=== PATIENT | female | born 1995 | race Caucasian/White ===

== ENCOUNTER 2017-03-22 13:42 | Emergency (ER) | payer OTHER ==
[~2017-03-22] VITALS: Ht 160 cm; Wt 73.5 kg
[2017-03-22 14:24] VITALS: BP 112/66
--- NOTE | 2017-03-22 15:16 | NUR ---
Patient ambulated to bed 5. RN evaluating patient at bedside.
--- NOTE | 2017-03-22 15:20 | NUR ---
21 PT PRESENTS TO ER W/C/O 01/17 RIGHT SIDED HEADACHE X2 DAYS. PT STATES SHE IS 20 WEEKS , AND HAS BEEN TAKING TYLENOL AT HOME, BUT IT IS NOT WORKING; DENIES N/V/D AT THIS TIME; SKIN IS PINK/WARM/DRY; AAOX4 WITH EVEN AND STEADY GAIT; RR ARE EVEN AND UNLABORED; PT DENIES ANY RECENT FEVERS, SOB, OR COUGH AT THIS TIME; VSS; PATIENT POSITIONED FOR COMFORT; HOB ELEVATED; BEDRAILS UP X2; BED DOWN. ER MD MADE AWARE OF PT STATUS.
[2017-03-22] MEDS ORDERED: ACETAMINOPHEN 325 MG TAB PO ONE (15:30)
[2017-03-22 16:34] VITALS: BP 107/77
--- NOTE | 2017-03-22 16:34 | NUR ---
Patient discharged with v/s stable. Written and verbal after care instructions given and explained. Patient verbalized understanding. Ambulatory with steady gait. All questions addressed prior to discharge. Advised to follow up with PMD.
== END 2017-03-22 16:34 | disposition home or self-care (01) ==
LOC: MED 13:42
DX: O26.892 Other specified pregnancy related conditions, second trimester (principal); R51 Headache; O21.8 Other vomiting complicating pregnancy; Z3A.18 18 weeks gestation of pregnancy
CPT/HCPCS: 81002; 99282

== ENCOUNTER 2018-10-19 19:10 | Observation (INO) | payer OTHER ==
[~2018-10-19] VITALS: Ht 162.6 cm; Wt 87.1 kg
[2018-10-19] MEDS ORDERED: PREN-380 PO (19:55)
[2018-10-19 21:06] VITALS: BP 110/71
== END 2018-10-19 22:10 | disposition home or self-care (01) ==
LOC: MLD 19:10
PROVIDERS: ADMIT Obstetrics & Gynecology; ATTEND Obstetrics & Gynecology
DX: O36.8190 Decreased fetal movements, unspecified trimester, not applicable or unspecified (principal); Z3A.00 Weeks of gestation of pregnancy not specified
CPT/HCPCS: 81000; G0378

== ENCOUNTER 2020-01-22 13:02 | Emergency (ER) | payer OTHER ==
[~2020-01-22] VITALS: Ht 162.6 cm; Wt 81.6 kg
[~2020-01-22 13:02] MED LIST: PREN-380 PO
[2020-01-22 13:40] VITALS: BP 120/72
[2020-01-22 15:00] VITALS: BP 120/72
--- NOTE | 2020-01-22 15:00 | NUR ---
NO NURSING CARE RENDERED-ALL EVAL, TX AND DISCHARGED DONE BY ER ME DR MEADOWS
== END 2020-01-22 15:00 | disposition home or self-care (01) ==
LOC: MED 13:02
DX: S93.602A Unspecified sprain of left foot, initial encounter (principal); Z79.899 Other long term (current) drug therapy; X50.1XXA Overexertion from prolonged static or awkward postures, initial encounter; Y93.01 Activity, walking, marching and hiking; Y92.89 Other specified places as the place of occurrence of the external cause; Y99.8 Other external cause status
CPT/HCPCS: 73630; 99283

== ENCOUNTER 2020-12-14 10:37 | Emergency (ER) | payer OTHER ==
[~2020-12-14] VITALS: Ht 162.6 cm; Wt 81.6 kg
[2020-12-14 10:47] VITALS: BP 113/88
[2020-12-14] MEDS ORDERED: ONDANSETRON 4 MG ODT PO ONE (11:20)
[2020-12-14 11:26] LABS: APPEARANCE,URINE CLOUDY (CLEAR); BILIRUBIN,URINE 1+ (NEGATIVE); BLOOD, URINE 2+ (NEGATIVE); COLOR,URINE YELLOW (YELLOW); LEUKOCYTE ESTERASE ,URINE 2+ (NEGATIVE); NITRITE, URINE NEGATIVE (NEGATIVE); UGLUCOSE NEGATIVE (NEGATIVE)
[2020-12-14 11:38] LABS: RBC,URINE 0-5 /HPF (0-5)
[2020-12-14] MEDS ORDERED: NITR100C7 PO (11:55)
[2020-12-14] MEDS ORDERED: ONDA-24 SL (11:55)
[2020-12-14 12:00] VITALS: BP 113/88
== END 2020-12-14 12:00 | disposition home or self-care (01) ==
LOC: MED 10:37
DX: N39.0 Urinary tract infection, site not specified (principal); R11.0 Nausea; R14.0 Abdominal distension (gaseous); Z79.899 Other long term (current) drug therapy
CPT/HCPCS: 81001; 81025; 87086; 99283; Q0162

== ENCOUNTER 2021-02-28 19:25 | Emergency (ER) | payer OTHER, SELFPAY ==
[~2021-02-28 19:25] MED LIST changes: +NITR100C7 PO; +ONDA-24 SL
--- NOTE | 2021-02-28 19:40 | NUR ---
PATIENT LEFT WITHOUT BEING SEEN BY DR. ROSAS. NO FURTHER CARE PROVIDED FOR PATIENT.
--- NOTE | 2021-02-28 19:41 | NUR ---
PATIENT LEFT WITHOUT BEING SEEN BY DR. ROSAS. NO FURTHER CARE PROVIDED FOR PATIENT.
--- NOTE | 2021-02-28 19:41 | NUR ---
CALLED FOR PATIENT NO ANSWER. ACCORDING TO STAFF PATIENT LEFT IN THEIR CAR.
--- NOTE | 2021-02-28 19:41 | NUR ---
Fernando patel in [facility] - 02/28/21 at 1942 by [facility] CALLED FOR PATIENT NO ANSWER
== END 2021-02-28 19:40 | disposition left against medical advice (07) ==
LOC: MED 19:25
DX: R50.9 Fever, unspecified (principal); Z53.21 Procedure and treatment not carried out due to patient leaving prior to being seen by health care provider

== ENCOUNTER 2021-10-19 12:00 | Emergency (ER) | payer OTHER ==
[~2021-10-19] VITALS: Ht 162.6 cm; Wt 79.4 kg
[~2021-10-19 12:00] MED LIST changes: +ONDA-188 SL; -ONDA-24 SL
[2021-10-19 12:24] VITALS: BP 119/76
--- NOTE | 2021-10-19 12:31 | NUR ---
AMBULATED TO ER BED 5
--- NOTE | 2021-10-19 12:35 | NUR ---
AUDRA CAMPBELL AND VERIFIED PD
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
--- NOTE | 2021-10-19 12:58 | NUR ---
ERMD AT BEDSIDE
--- NOTE | 2021-10-19 12:59 | NUR ---
DR. CARR BEDSIDE EVALUATING PT
[2021-10-19] MEDS ORDERED: ACETAMINOPHEN EXTRA STRENGTH 500 MG TAB PO ONE (13:05)
[2021-10-19] MEDS ORDERED: IBUP-2213 PO (13:33)
[2021-10-19] MEDS ORDERED: ACET-10509 PO (13:33)
--- NOTE | 2021-10-19 14:52 | NUR ---
Patient appears to be resting comfortably in bed. Vital Signs within normal limits. Respirations even and unlabored.
[2021-10-19 15:00] VITALS: BP 111/60
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
== END 2021-10-19 15:00 | disposition home or self-care (01) ==
LOC: MED 12:00
DX: S09.90XA Unspecified injury of head, initial encounter (principal); R07.89 Other chest pain; R45.6 Violent behavior; R11.10 Vomiting, unspecified; Y09 Assault by unspecified means; Y93.89 Activity, other specified; Y92.89 Other specified places as the place of occurrence of the external cause; Y99.8 Other external cause status
CPT/HCPCS: 70450; 71046; 81025; 99284

== ENCOUNTER 2022-07-31 13:29 | Emergency (ER) | payer OTHER ==
[~2022-07-31] VITALS: Ht 165.1 cm; Wt 81.6 kg
[~2022-07-31 13:29] MED LIST changes: +ACET-10509 PO; +IBUP-2213 PO
[2022-07-31 13:42] VITALS: BP 134/78
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
[2022-07-31] MEDS ORDERED: IBUPROFEN 600 MG TAB PO ONE (15:00)
[2022-07-31] MEDS ORDERED: IBUP-2213 PO (15:50)
== END 2022-07-31 16:00 | disposition home or self-care (01) ==
LOC: MED 13:29
DX: S93.401A Sprain of unspecified ligament of right ankle, initial encounter (principal); Z79.899 Other long term (current) drug therapy; W22.8XXA Striking against or struck by other objects, initial encounter; Y93.89 Activity, other specified; Y92.89 Other specified places as the place of occurrence of the external cause; Y99.8 Other external cause status
CPT/HCPCS: 29515; 73610; 73630; 99284

== ENCOUNTER 2022-08-30 18:24 | Emergency (ER) | payer OTHER ==
[~2022-08-30] VITALS: Ht 154.9 cm; Wt 79.8 kg
[2022-08-30 18:56] VITALS: BP 119/76
[2022-08-30] MEDS ORDERED: IPRATROPIUM 0.02% 0.5 MG/2.5 ML NEBU INH ONE (19:25)
[2022-08-30] MEDS ORDERED: ALBUTEROL 0.083% 2.5 MG/3 ML NEBU INH ONE (19:25)
[2022-08-30] MEDS ORDERED: predniSONE 20 MG TAB PO ONE (19:25)
[2022-08-30] MEDS ORDERED: ALBU0.0912 INH (20:01)
[2022-08-30] MEDS ORDERED: PRED20TA5 PO (20:01)
[2022-08-30] MEDS ORDERED: [UNRECOGNIZED DRUG - CODE] PO (20:01)
--- NOTE | 2022-08-30 20:08 | NUR ---
Patient discharged with v/s stable. Written and verbal after care instructions given and explained. Patient alert, oriented and verbalized understanding of instructions. Ambulatory with steady gait. All questions addressed prior to discharge. ID band removed. Patient advised to follow up with PMD. Rx of ZYRTEC, PREDNISONE, ALBUTEROL given. Patient educated on indication of medication including possible reaction and side effects. Opportunity to ask questions provided and answered.
== END 2022-08-30 20:08 | disposition home or self-care (01) ==
LOC: MED 18:24
DX: J45.901 Unspecified asthma with (acute) exacerbation (principal); J06.9 Acute upper respiratory infection, unspecified; F12.90 Cannabis use, unspecified, uncomplicated; Z79.899 Other long term (current) drug therapy; Z79.1 Long term (current) use of non-steroidal anti-inflammatories (NSAID); Z79.2 Long term (current) use of antibiotics
CPT/HCPCS: 94640; 99283; J7512; J7613; J7644

== ENCOUNTER 2023-11-25 08:49 | Emergency (ER) | payer OTHER ==
[~2023-11-25] VITALS: Ht 162.6 cm; Wt 77.1 kg
[~2023-11-25 08:49] MED LIST changes: +ALBU0.0912 INH; +CETI1TAB68 PO; +PRED20TA5 PO
[2023-11-25 08:55] VITALS: BP 130/86; PULSE 99; RESP 19; TEMP 98.4; O2SAT 100
[2023-11-25 09:22] LABS: BASOPHILS % (AUTO) 0.5 % (0.0-2.0); EOSINOPHILS # (AUTO) 0.1 K/uL (0-0.4); EOSINOPHILS % (AUTO) 2.9 % (0.0-4.0); HEMATOCRIT 39.5 % (36-48); HEMOGLOBIN 13.6 g/dL (12.0-16.0); LYMPHOCYTES % (AUTO) 23.9 % (20.5-51.1); MEAN CORPUSCULAR HEMOGLOBIN 30 pg (27-31); MEAN CORPUSCULAR HGB CONC 34 g/dL (33-37); MEAN CORPUSCULAR VOLUME 87.5 fL (80-94); MONOCYTES # (AUTO) 0.3 K/uL (0.8-1.0); MONOCYTES % (AUTO) 6.9 % (1.7-9.3); NEUTROPHILS # (AUTO) 2.9 K/uL (1.8-7.7); NEUTROPHILS % (AUTO) 65.8 % (42.2-75.2); PLATELET COUNT (AUTO) 243 K/uL (140-450); RED BLOOD CELL COUNT(AUTO) 4.52 MIL/uL (4.20-5.40); RED CELL DISTRIBUTION WIDTH 13.3 % (11.6-13.7); WHITE BLOOD COUNT (AUTO) 4.4 K/uL (4.8-10.8)
[2023-11-25 10:22] LABS: ALBUMIN 4.3 g/dL (3.4-5.0); ANION GAP 12.8 (8-16); CALCIUM 9.1 mg/dL (8.5-10.1); CARBON DIOXIDE 27.5 mmol/L (21-32); CREATININE 0.9 mg/dL (0.6-1.3); POTASSIUM 3.3 mmol/L (3.5-5.1); TOTAL BILIRUBIN 2.1 mg/dL (0.0-1.0); TOTAL PROTEIN, SERUM 7.6 g/dL (6.4-8.2)
[2023-11-25] MEDS: KETOROLAC 30 MG/ML VIAL IM ONE (10:53)
[2023-11-25 11:12] VITALS: BP 107/71; PULSE 76; RESP 18; TEMP 97.6; O2SAT 99
== END 2023-11-25 11:12 | disposition home or self-care (01) ==
LOC: MED 08:49
DX: M79.661 Pain in right lower leg (principal); E87.6 Hypokalemia; Z79.899 Other long term (current) drug therapy
CPT/HCPCS: 36415; 80053; 81025; 85025; 93971; 96372; 99285; J1885; Q0092

== ENCOUNTER 2023-12-11 10:44 | Emergency (ER) | payer OTHER ==
[~2023-12-11] VITALS: Ht 162.6 cm; Wt 71.2 kg
[2023-12-11 11:19] VITALS: BP 131/84; PULSE 102; RESP 18; TEMP 98; O2SAT 100
[2023-12-11] MEDS ORDERED: ATA25 PO (12:42)
== END 2023-12-11 12:45 | disposition home or self-care (01) ==
LOC: MED 10:44
DX: F41.9 Anxiety disorder, unspecified (principal); Z79.899 Other long term (current) drug therapy
CPT/HCPCS: 99283